=== PATIENT | female | born 1970 | race Caucasian/White ===

== ENCOUNTER 2016-10-03 19:06 | Observation (INO) | payer SELFPAY ==
[~2016-10-03] VITALS: Ht 152.4 cm; Wt 74.0 kg
[~2016-10-03 19:06] MED LIST: LEVO25TA4 PO; PROM25TA5 PO; [UNRECOGNIZED DRUG - CODE] PO
[2016-10-03 19:08] VITALS: BP 139/88; PULSE 81; RESP 16; TEMP 98.1; O2SAT 98
[2016-10-03] MEDS ORDERED: LEVO50TA4 PO (22:55)
[2016-10-03] MEDS ORDERED: LEVO25TA4 PO (22:55)
[2016-10-03 23:00] VITALS: BP_SYST 120; BP_SYST 128; BP_DIAS 78; BP_DIAS 81; PULSE 59; PULSE 65; RESP 16; O2SAT 98
[2016-10-03] MEDS ORDERED: SODIUM CHLORIDE 0.9% FLUSH 5 ML FLUSH IVF PRN (23:00)
[2016-10-03] MEDS ORDERED: ASPIRIN 81 MG CHEW TAB PO ONE (23:00)
[2016-10-03 23:23] LABS: AUTOMATED NEUTROPHIL # 4.4 TH/MM3 (1.8-7.7); BASOPHIL % 0.6 % (0.0-2.0); EOSINOPHIL # 0.1 TH/MM3 (0-0.4); EOSINOPHIL % 1.5 % (0.0-4.0); HEMATOCRIT 41.5 % (35.0-46.0); HEMO FLAGS DIFF FINAL; LYMPH % 37.2 % (9.0-44.0); MEAN CELL VOLUME 84.1 FL (80.0-100.0); MEAN CORPUSCULAR HEMOGLOBIN 29.7 PG (27.0-34.0); MEAN CORPUSCULAR HGB CONC 35.3 % (32.0-36.0); MONO % 4.9 % (0.0-8.0); NEUT % 55.8 % (16.0-70.0); PLATELET COUNT 204 TH/MM3 (150-450); RED BLOOD COUNT 4.94 MIL/MM3 (4.00-5.30); RED CELL DISTRIBUTION WIDTH 13.9 % (11.6-17.2)
[2016-10-03 23:36] LABS: ALT (GPT) 24 U/L (10-53); ANION GAP 12 MEQ/L (5-15); AST (GOT) 15 U/L (15-37); BLOOD UREA NITROGEN 9 MG/DL (7-18); CHLORIDE 106 MEQ/L (98-107); GLOMERULAR FILTRATION RATE 74 ML/MIN (>89); POTASSIUM 3.9 MEQ/L (3.5-5.1); SODIUM (NA) 142 MEQ/L (136-145)
[2016-10-03 23:40] LABS: INTERNATIONAL NORMALIZED RATIO 0.9 RATIO
[2016-10-03 23:41] LABS: ALKALINE PHOSPHATASE 77 U/L (45-117); TOTAL BILIRUBIN ADULT 0.2 MG/DL (0.2-1.0)
--- NOTE | 2016-10-03 23:41 | PD ---
HPI Chief Complaint: Chest Pain Time Seen by Provider: 22:52 Travel History International Travel<30 days: No Contact w/Intl Traveler<30days: No Traveled to known affect area: No History of Present Illness HPI The patient is a 46 year old female who presents to the [facility] emergency department with a history of chest pain on the left side of the chest that she reports began a week ago. She reports that the pain has been constant and a dull aching sensation that she reports has been mild, however today she began to have tingling sensations in the left arm with left wrist swelling and left-sided chest wall swelling. She reports that she's had shortness of breath intermittently over the last week. She denies having any cough or congestion. She denies having any worsening acid reflux symptoms. She last took an over-the -counter Prilosec for her acid reflux 3 days ago. She denies having any history of hypertension, however she does have hyperlipidemia that she is attempting to control with diet and exercise. She denies having any history of diabetes mellitus. She reports that she does smoke a half a pack of cigarettes per day. She denies ever having a stress test done previously. She denies having any diaphoresis or nausea associated with this per The patient denies any recent fevers, cough, congestion, neck pain, abdominal pain, vomiting, diarrhea, urinary symptoms, or neurologic symptoms. [facility] Past Medical History Narrative Medical The patient's past medical history is significant for anxiety, depression, hypothyroid disorder, acid reflux, hyperlipidemia, hepatitis B, allergic rhinitis with intermittent sinusitis, fibromyalgia Anxiety: Yes Depression: Yes Fibromyalgia: Yes Hepatitis: Yes (hepatitis b) Immunizations Current: Yes Thyroid Disease: Yes Influenza Vaccination: No ?: Not LMP: 09/19/2016 : 3 Para: 2 Past Surgical History Narrative Surgical The patient's past surgical history is significant for 2 prior C-sections, bilateral tubal ligation, carpal tunnel release on the right, cholecystectomy, liver biopsy. Section: Yes Social History Alcohol Use: Yes (occassionally) Tobacco Use: Yes (10 cigarettes per day) Substance Use: No Allergies-Medications (Allergen,Severity, Reaction): Coded Allergies: Sulfa (Verified Allergy, Intermediate, Hives, 10/03/16) Reported Meds & Prescriptions Reported Meds & Active Scripts Active Reported Levothyroxine (Levothyroxine Sodium) 25 Mcg Tab 25 Mcg PO TUES., THURS,SAT,SUN Review of Systems Except as stated in HPI: all other systems reviewed are Neg General / Constitutional: No: Fever Eyes: No: Visual changes HENT: Positive: Rhinitis, Rhinorrhea (clear in color), No: Headaches, Congestion Cardiovascular: Positive: Chest Pain or Discomfort, Dyspnea on exertion, Edema , No: Diaphoresis Respiratory: Positive: Shortness of Breath, No: Cough Gastrointestinal: No: Nausea, Vomiting, Diarrhea, Abdominal Pain, Changes in Bowel Habits, Indigestion, Loss of Appetite Genitourinary: No: Dysuria Musculoskeletal: No: Pain Skin: No Rash Neurologic: No: Weakness, Change in Mentation, Sensory Disturbance Psychiatric: No: Depression Endocrine: No: Polydipsia Hematologic/Lymphatic: No: Easy Bruising Physical Exam Narrative General: The patient is a well-developed well-nourished female in no acute distress. Head and Neck exam: Head is normocephalic atraumatic. Eyes: EOMI, pupils are equal round and reactive to light. Nose: Midline septum with pink mucous membranes Mouth: Dentition unremarkable. Moist mucus membranes. Posterior oropharynx is not erythematous. No tonsillar hypertrophy. Uvula midline. Airway patent. Neck: No palpable lymphadenopathy. No nuchal rigidity. No thyromegaly. Cardiovascular: Regular rate and rhythm without murmurs, gallops, or rubs. No pulse deficit to the extremities and simultaneous auscultation and palpation of her radial artery. She has chest wall tenderness on palpation anteriorly. There is no step-off or crepitus. No flail segment, no erythema or ecchymosis, no swelling noted on examination. Lungs: Clear to auscultation bilaterally. No wheezes, rhonchi, or rales. Abdomen: Soft, without tenderness to palpation in all 4 quadrants of the abdomen. No guarding, rebound, or rigidity. Normal bowel sounds are audible. Extremities: No clubbing, cyanosis, or edema. 2+ pulses in all 4 extremities. No calf tenderness on palpation. Negative Homans sign. No palpable cords. Back: No spinous process tenderness to palpation. No costovertebral angle tenderness to palpation. Neurologic Exam: Grossly nonfocal. Skin Exam: No rash noted. Intact skin that is warm and dry. Data Data Last Documented VS Vital Signs Date Time Temp Pulse Resp B/P Pulse Ox O2 Delivery O2 Flow Rate FiO2 10/03/16 23:02 100 Nasal Cannula 2 10/03/16 23:00 59 16 128/78 10/03/16 19:08 98.1 Orders Electrocardiogram (10/03/16 19:19) B-Type Natriuretic Peptide (10/03/16 22:55) Ckmb (Isoenzyme) Profile (10/03/16 22:55) Complete Blood Count With Diff (10/03/16 22:55) Comprehensive Metabolic Panel (10/03/16 22:55) D-Dimer (10/03/16 22:55) Magnesium (Mg) (10/03/16:55) Prothrombin Time / Inr (Pt) (10/03/16:55) Act Partial Throm Time (Ptt) (10/03/16:55) Troponin I (10/03/16 22:55) Lipase (10/03/16 22:55) Chest, Single Ap (10/03/16:55) Ecg Monitoring (10/03/16:55) Bilateral Bp Monitoring (10/03/16:55) Iv Access Insert/Monitor (10/03/16:55) Oximetry (10/03/16 22:55) Oxygen Administration (10/03/16:55) Aspirin Chew (Aspirin Chew) (10/03/16 23:00) Sodium Chloride 0.9% Flush (Ns Flush) (10/03/16 23:00) Ed Urine Pregnancytest Poc (10/03/16 22:55) Urinalysis - C+S If Indicated (10/03/16 22:55) Admit Order (Ed Use Only) (10/04/16 00:46) Labs Laboratory Tests Test 10/03/16 23:10 White Blood Count 8.0 TH/MM3 Red Blood Count 4.94 MIL/MM3 Hemoglobin 14.7 GM/DL Hematocrit 41.5 % Mean Corpuscular Volume 84.1 FL Mean Corpuscular Hemoglobin 29.7 PG Mean Corpuscular Hemoglobin 35.3 % Concent Red Cell Distribution Width 13.9 % Platelet Count 204 TH/MM3 Mean Platelet Volume 8.6 FL Neutrophils (%) (Auto) 55.8 % Lymphocytes (%) (Auto) 37.2 % Monocytes (%) (Auto) 4.9 % Eosinophils (%) (Auto) 1.5 % Basophils (%) (Auto) 0.6 % Neutrophils # (Auto) 4.4 TH/MM3 Lymphocytes # (Auto) 3.0 TH/MM3 Monocytes # (Auto) 0.4 TH/MM3 Eosinophils # (Auto) 0.1 TH/MM3 Basophils # (Auto) 0.0 TH/MM3 CBC Comment DIFF FINAL Differential Comment Prothrombin Time 10.0 SEC Prothromb Time International 0.9 RATIO Ratio Activated Partial 25.0 SEC Thromboplast Time D-Dimer Quantitative (PE/DVT) 0.19 MG/L FEU Sodium Level 142 MEQ/L Potassium Level 3.9 MEQ/L Chloride Level 106 MEQ/L Carbon Dioxide Level 24.0 MEQ/L Anion Gap 12 MEQ/L Blood Urea Nitrogen 9 MG/DL Creatinine 0.83 MG/DL Estimat Glomerular Filtration 74 ML/MIN Rate Random Glucose 126 MG/DL Calcium Level 8.3 MG/DL Magnesium Level 2.0 MG/DL Total Bilirubin 0.2 MG/DL Aspartate Amino Transf 15 U/L (AST/SGOT) Alanine Aminotransferase 24 U/L (ALT/SGPT) Alkaline Phosphatase 77 U/L Total Creatine Kinase 64 U/L Troponin I LESS THAN 0.02 NG/ML Total Protein 7.0 GM/DL Albumin 3.4 GM/DL Lipase 145 U/L B-Type Natriuretic Peptide 6 PG/ML MDM Medical Decision Making Medical Screen Exam Complete: Yes Emergency Medical Condition: Yes Medical Record Reviewed: Yes Interpretation(s) Last Impressions Chest X-Ray 10/03/16 3211 Signed Impressions: Service Date/Time: Monday, October 03, 2016 23:22 - CONCLUSION: No acute cardiopulmonary disease identified. Russell Orozco MD Differential Diagnosis Acute coronary syndrome, versus anxiety, versus costochondritis, versus pleurisy , versus pneumonia, versus pulmonary embolism Narrative Course During the course of the patients emergency department visit, the patients history, examination, and differential diagnosis were reviewed with the patient. The patient had IV access obtained and blood work sent for analysis. The patient was placed on a bus driver/monitor with oximetry and blood pressure monitoring. An EKG was done on arrival. The patient was provided aspirin 162 mg by mouth 1. The patients laboratory studies were reviewed and remarkable for a CBC that is within normal limits. CMP is remarkable for a glucose of 126, initial set of cardiac enzymes are negative, BNP 6, lipase 145, PT PTT unremarkable, d-dimer is 0.19 decreasing likelihood of pulmonary embolism in this patient with no other significant risk factors. Urinalysis is unremarkable. Radiology studies were reviewed and remarkable for a chest x-ray that shows no acute abnormality. The patient was agreeable with the plan to proceed with admission to the chest pain center for rule out serial cardiac enzyme protocol and stress testing. The patients results were discussed with the patient, including the plan of care. I explained that further testing and/ or monitoring is indicated based on the patients history, examination, and/ or laboratory findings. Therefore, I recommended admission for additional evaluation. The patient expressed understanding and was agreeable with this plan. The patient was admitted to the hospital in stable condition and sent to a bed under the care of the chest pain center. Diagnosis Primary Impression: Chest pain, rule out acute myocardial infarction Admitting Information Admitting Physician Requests: Suzi Jc MD Oct 03, 2016 23:40
[2016-10-03 23:45] LABS: CREATINE KINASE 64 U/L (26-192)
--- NOTE | 2016-10-04 00:29 | RADRPT ---
EXAM DATE/TIME: 10/03/2016 23:22 [facility] COMPARISON: CHEST SINGLE AP, June 07, 2016, 2:56. INDICATIONS : Chest pain for one week. MEDICAL HISTORY : None. SURGICAL HISTORY : None. ENCOUNTER: Initial ACUITY: 1 week PAIN SCORE: 4/10 LOCATION: Bilateral chest FINDINGS: Single AP view of the chest. The lungs are clear. Cardiomediastinal silhouette within normal limits. No evidence of pleural effusion or pneumothorax. CONCLUSION: No acute cardiopulmonary disease identified. Russell Orozco MD on October 04, 2016 at 0:27 Board Certified Radiologist. This report was verified electronically.
[2016-10-04 01:01] LABS: BLOOD, URINE NEG (NEG); GLUCOSE,URINE NEG (NEG); KETONE, URINE NEG (NEG); MUCUS URINE FEW /lpf (OCC); NITRITE,URINE NEG (NEG); PH, URINE 6.5 (5.0-8.5); SQUAMOUS EPITHELIAL CELL URINE 1 /hpf (0-5); URINE COLOR YELLOW (YELLW/STRAW)
[2016-10-04 01:02] LABS: COMMENT (UR) CULT NOT INDICATED; CULTURE IF INDICATED CULT NOT INDICATED
[2016-10-04 04:54] VITALS: BP 110/59; PULSE 72; RESP 20; TEMP 98; O2SAT 95
[2016-10-04 04:58] VITALS: BP 127/85; PULSE 88; RESP 16; O2SAT 98
[2016-10-04] MEDS ORDERED: SODIUM CHLORIDE 0.9% FLUSH 5 ML FLUSH IVF PRN (05:30)
[2016-10-04 06:00] LABS: CREATINE KINASE 58 U/L (26-192)
[2016-10-04 07:07] VITALS: PULSE 64
[2016-10-04 07:16] VITALS: BP 97/60; PULSE 68; RESP 17; TEMP 98.4; O2SAT 98
[2016-10-04 08:30] VITALS: PULSE 82
[2016-10-04 08:31] LABS: CREATINE KINASE 59 U/L (26-192)
--- NOTE | 2016-10-04 08:38 | HHI.DCPOC ---
Discharge Care Plan Diagnosis: (1) Chest pain, atypical (2) Tobacco abuse Goals to Promote Your Health * To prevent worsening of your condition and complications * To maintain your health at the optimal level Directions to Meet Your Goals Take your medications as prescribed Follow your dietary instruction Follow activity as directed Keep your appointments as scheduled Take your immunizations and boosters as scheduled If your symptoms worsen call your PCP, if no PCP go to Urgent Care Center or Emergency Room Smoking is Dangerous to Your Health. Avoid second hand smoke Call the 24-hour hour crisis hotline for domestic abuse at Lamine Berrios Oct 04, 2016 08:38
--- NOTE | 2016-10-04 08:48 | HHI.HP ---
HPI Primary Care Physician No Primary Care Physician Chief Complaint Chest pain History of Present Illness This is a 46-year-old female that presents to the ED complaining of a left upper chest discomfort as been present intermittently for the past week. She found nothing to bring on the discomfort. She states that when it occurs it last for half hour to one hour. No associated shortness of breath nausea or diaphoresis. She states that she can worsen discomfort if she presses on it. Denies recent trauma. Denies coughing. Denies fevers or chills. Denies recent travel. She became concerned yesterday when the discomfort began to radiate down her left arm and it appeared her that her left hand was a little swollen. Review of Systems General: Patient denies fevers, chills recent, and recent travel HEENT: Patient denies headache, sore throat, difficulty swallowing. Cardiovascular: Has the chest discomfort as mentioned above. Denies sensation of heart beating rapidly or irregularly. No syncope. Respiratory: Denies shortness of breath or inspirational chest discomfort. Denies coughing wheezing or hemoptysis. GI: Patient denies nausea, vomiting, diarrhea, abdominal pain, bloody stools. Musculoskeletal: The patient believes that her left hand was a little swollen. Denies calf pain or edema. Neurovascular: Patient denies numbness, tingling, weakness in extremities. Denies headache. Endocrine: Denies polyuria and polydipsia. Hematologic: Denies easy bruising. Skin: Denies rash or itching. Past Family Social History Allergies: Coded Allergies: Sulfa (Verified Allergy, Intermediate, Hives, 10/03/16) Past Medical History Hypothyroidism. Tobacco abuse. Denies hypertension hyperlipidemia diabetes and CAD. Past Surgical History Noncontributory. Reported Medications Reported Meds & Active Scripts Active Reported Levothyroxine (Levothyroxine Sodium) 50 Mcg Tab 50 Mcg PO MON, MON, MONDAY Levothyroxine (Levothyroxine Sodium) 25 Mcg Tab 25 Mcg PO ., ,SAT,SUN Active Ordered Medications Current Medications Medications (Trade) Dose Ordered Sig/Joseph Route Start Time Stop Time Status Last Admin (NS Flush) 2 ml UNSCH PRN IVF 10/03/16 23:00 10/03/16 23:29 (NS Flush) 2 ml UNSCH PRN IVF 10/04/16 05:30 (NS Flush) 2 ml BID IVF 10/04/16 09:00 Family History Denies family history of CAD. Social History Patient smokes about one half pack of cigarettes daily for 30 years. She has occasional alcohol. Denies illicit drugs. She lives with family. Physical Exam Vital Signs Vital Signs Date Time Temp Pulse Resp B/P Pulse Ox O2 Delivery O2 Flow Rate FiO2 10/04/16 07:16 98.4 68 17 97/60 98 10/04/16 07:07 64 10/04/16 04:58 98 21 10/04/16 04:58 88 16 127/85 98 Room Air 10/04/16 04:54 98.0 72 20 110/59 95 10/03/16 23:02 100 Nasal Cannula 2 10/03/16 23:00 59 16 128/78 98 Room Air 10/03/16 23:00 65 16 120/81 98 Room Air 10/03/16 19:08 98.1 81 16 139/88 98 Room Air Physical Exam GENERAL: This is a well-nourished, well-developed patient, in no apparent distress. Patient speaks in clear complete sentences. Patient is pleasant. HEENT: Head is atraumatic and normocephalic. Neck is supple without lymphadenopathy and trachea is midline. No JVD or carotid bruits. CARDIOVASCULAR: Regular rate and rhythm without murmurs, gallops, or rubs. RESPIRATORY: Left upper chest wall tender. It easily worsens the discomfort that she has been having even with light palpation. Clear to auscultation. Breath sounds equal bilaterally. No wheezes, rales, or rhonchi. No use of accessory muscles. GASTROINTESTINAL: Abdomen is nontender, nondistended. Abdomen soft. No obvious pulsatile mass or bruit. No CVA tenderness. Strong femoral pulses bilaterally. Normal bowel sounds in all quadrants. MUSCULOSKELETAL: Patient is moving upper and lower extremities freely. No calf tenderness or edema, no Homans sign. Strong pulses in upper and lower extremities. NEUROLOGICAL: Patient is alert and oriented. Cranial nerves 2-12 are grossly intact. No focal deficits and speech is clear. SKIN: No rash and turgor is normal. Laboratory Laboratory Tests Test 10/03/16 10/04/16 10/04/16 10/04/16 23:10 00:50 04:30 07:30 White Blood Count 8.0 Red Blood Count 4.94 Hemoglobin 14.7 Hematocrit 41.5 Mean Corpuscular Volume 84.1 Mean Corpuscular Hemoglobin 29.7 Mean Corpuscular Hemoglobin 35.3 Concent Red Cell Distribution Width 13.9 Platelet Count 204 Mean Platelet Volume 8.6 Neutrophils (%) (Auto) 55.8 Lymphocytes (%) (Auto) 37.2 Monocytes (%) (Auto) 4.9 Eosinophils (%) (Auto) 1.5 Basophils (%) (Auto) 0.6 Neutrophils # (Auto) 4.4 Lymphocytes # (Auto) 3.0 Monocytes # (Auto) 0.4 Eosinophils # (Auto) 0.1 Basophils # (Auto) 0.0 CBC Comment DIFF FINAL Differential Comment Prothrombin Time 10.0 Prothromb Time International 0.9 Ratio Activated Partial 25.0 Thromboplast Time D-Dimer Quantitative (PE/DVT) 0.19 Sodium Level 142 Potassium Level 3.9 Chloride Level 106 Carbon Dioxide Level 24.0 Anion Gap 12 Blood Urea Nitrogen 9 Creatinine 0.83 Estimat Glomerular Filtration 74 Rate Random Glucose 126 Calcium Level 8.3 Magnesium Level 2.0 Total Bilirubin 0.2 Aspartate Amino Transf 15 (AST/SGOT) Alanine Aminotransferase 24 (ALT/SGPT) Alkaline Phosphatase 77 Total Creatine Kinase 64 58 59 Troponin I LESS THAN 0.02 LESS THAN 0.02 LESS THAN 0.02 Total Protein 7.0 Albumin 3.4 Lipase 145 B-Type Natriuretic Peptide 6 Urine Color YELLOW Urine Turbidity CLEAR Urine pH 6.5 Urine Specific [place] 1.017 Urine Protein NEG Urine Glucose (UA) NEG Urine Ketones NEG Urine Occult Blood NEG Urine Nitrite NEG Urine Bilirubin NEG Urine Urobilinogen LESS THAN 2.0 Urine Leukocyte Esterase NEG Urine RBC 1 Urine WBC LESS THAN 1 Urine Squamous Epithelial 1 Cells Urine Mucus FEW Microscopic Urinalysis Comment CULT NOT INDICATED Result Diagram: 10/03/16 2310 10/03/16 231 Imaging Chest x-ray reveals nothing acute. Course EKGs have sinus rhythm without significant ST segment depressions or elevations. Assessment and Plan Assessment and Plan * Atypical chest pain: Patient had serial cardiac enzymes and EKGs for ruling out purposes. Her chest wall tenderness was easily reproducible with palpating the area. She was seen by Dr. Wodos cardiology in the chest pain center. She'll be given a prescription of Naprosyn and discharge at this time. She should follow-up with her physician. * Tobacco abuse: Patient has been counseled on importance of smoking cessation. Lamine Berrios Oct 04, 2016 08:47
[2016-10-04] MEDS ORDERED: SODIUM CHLORIDE 0.9% FLUSH 5 ML FLUSH IVF SCH (09:00)
--- NOTE | 2016-10-04 16:24 | EKG ---
Date Performed: 10/04/2016 Time Performed: 07:45:30 PTAGE: 46 years EKG: Sinus rhythm NORMAL ECG Since PREVIOUS TRACING , no significant change noted PREVIOUS TRACIN10/04/2016 04.33 DOCTOR: Tanesha Woods Interpretating Date/Time 10/04/2016 16:22:14
--- NOTE | 2016-10-04 16:25 | EKG ---
Date Performed: 10/04/2016 Time Performed: 04:33:13 PTAGE: 46 years EKG: Sinus rhythm LOW QRS VOLTAGE IN PRECORDIAL LEADS BORDERLINE ECG Since PREVIOUS TRACING , no significant change noted PREVIOUS TRACIN10/03/2016 19.37 DOCTOR: Tanesha Woods Interpretating Date/Time 10/04/2016 16:23:45
--- NOTE | 2016-10-04 16:26 | EKG ---
Date Performed: 10/03/2016 Time Performed: 19:37:08 PTAGE: 46 years EKG: Sinus rhythm LOW QRS VOLTAGE IN PRECORDIAL LEADS BORDERLINE ECG Since PREVIOUS TRACING , no significant change noted PREVIOUS TRACIN06/10/2016 00.31 DOCTOR: Tanesha Woods Interpretating Date/Time 10/04/2016 16:24:54
== END 2016-10-04 11:33 | disposition home or self-care (01) ==
LOC: NEPE 19:06 → NEDA 10-04 00:47 → NEPHCDU 10-04 04:57
DX: R07.9 Chest pain, unspecified (principal); R20.2 Paresthesia of skin; R06.02 Shortness of breath; E78.5 Hyperlipidemia, unspecified; F17.210 Nicotine dependence, cigarettes, uncomplicated; M79.7 Fibromyalgia; K21.9 Gastro-esophageal reflux disease without esophagitis; E03.9 Hypothyroidism, unspecified; B19.10 Unspecified viral hepatitis B without hepatic coma
CPT/HCPCS: 71010; 80053; 81001; 82550; 83690; 83735; 83880; 84484; 84703; 85025; 85379; 85610; 85730; 93005; 99285; G0378

== ENCOUNTER 2016-11-03 13:44 | Emergency (ER) | payer SELFPAY ==
[~2016-11-03] VITALS: Ht 152.4 cm; Wt 72.8 kg
[~2016-11-03 13:44] MED LIST changes: +LEVO50TA4 PO; -PROM25TA5 PO; -[UNRECOGNIZED DRUG - CODE] PO
[2016-11-03 13:46] VITALS: BP 129/83; PULSE 104; RESP 20; TEMP 99; O2SAT 98
--- NOTE | 2016-11-03 13:53 | PD ---
Physical Exam Time Seen by Provider: 13:50 Narrative 46 yo F c/o constant left sided chest pain x 3 months. Has been evaluated 3 times already. Reports SOB. Thinks its related to increase in thyroid medication. Hx of anxiety and has not taken medication prescribed. VSS Seen in triage, awaiting bed placement. Data Data Last Documented VS Vital Signs Date Time Temp Pulse Resp B/P Pulse Ox O2 Delivery O2 Flow Rate FiO2 11/03/16 13:46 99.0 104 20 129/83 98 Room Air MDM Supervised Visit with ROSELYN: Any Louis Nov 03, 2016 13:53
--- NOTE | 2016-11-03 16:28 | PD ---
HPI Chief Complaint: Chest Pain Time Seen by Provider: 16:11 Travel History International Travel<30 days: No Contact w/Intl Traveler<30days: No Traveled to known affect area: No History of Present Illness HPI This is a 46-year-old female who presents to the emergency department with 3 months of chest discomfort, throat pain, ear pain, fatigue, weakness, difficulty sleeping and anxiety. She says the chest pain has been constant, moderate severity, feeling like a swelling in her chest, associated with some chills. She also reports that she's had dry skin behind her ears, she's having some pain when she swallows, and she feels very tired. She's been seen for this multiple times. She attributed it to starting a new thyroid medication. She was prescribed venlafaxine by her primary care doctor but was afraid to take it. She was just admitted here for chest pain and had serial cardiac enzymes and was seen by cardiology who thought her pain was likely musculoskeletal. PFSH Past Medical History Anxiety: Yes Depression: Yes Heart Rhythm Problems: No Cardiac Catheterization: No Cardiovascular Problems: Yes High Cholesterol: Yes Congestive Heart Failure: No Diabetes: No Fibromyalgia: Yes Hepatitis: Yes (hepatitis b) Immunizations Current: Yes Thyroid Disease: Yes ?: Not : 3 Para: 2 Past Surgical History Section: Yes Coronary Artery Bypass Graft: No Social History Alcohol Use: Yes (occassionally) Tobacco Use: Yes (10 cigarettes per day) Substance Use: No Allergies-Medications (Allergen,Severity, Reaction): Coded Allergies: Sulfa (Verified Allergy, Intermediate, Hives, 11/03/16) Reported Meds & Prescriptions Reported Meds & Active Scripts Active Reported Levothyroxine (Levothyroxine Sodium) 25 Mcg Tab 25 Mcg PO TUES., THURS,SAT,SUN Review of Systems Except as stated in HPI: all other systems reviewed are Neg Physical Exam Narrative GENERAL:Well appearing, no acute distress SKIN: Focused skin assessment warm and dry. HEAD: Atraumatic. Normocephalic. EYES: Pupils equal and round. No injection or drainage. ENT: Moist mucous membranes. Some dry skin behind both ears. Mild posterior pharyngeal erythema. NECK: Trachea midline. CARDIOVASCULAR: Regular rate and rhythm. No murmur appreciated. RESPIRATORY: Clear to auscultation. Breath sounds equal bilaterally. GASTROINTESTINAL: Abdomen soft, non-tender, nondistended. MUSCULOSKELETAL: No obvious deformities. NEUROLOGICAL: Awake and alert. No obvious cranial nerve deficits. Moving all extremities. PSYCHIATRIC: Appropriate mood and affect; insight and judgment normal. Data Data Last Documented VS Vital Signs Date Time Temp Pulse Resp B/P Pulse Ox O2 Delivery O2 Flow Rate FiO2 11/03/16 13:46 99.0 104 20 129/83 98 Room Air MDM Medical Decision Making Medical Screen Exam Complete: Yes Emergency Medical Condition: Yes Interpretation(s) Temperature is 99, pulse is 104 Differential Diagnosis Viral syndrome, pneumonia, pericarditis, acute coronary syndrome Narrative Course This is a 46-year-old female who presents to the emergency department with multiple symptoms including chest discomfort, sore throat, rhinorrhea, and malaise. She appears to have a viral syndrome on exam with some posterior pharyngeal erythema, temperature of 99 and some tachycardia. She's been worked up for this chest discomfort in the past and it's been going on constantly for 3 months. I think she needs to see her primary care physician to have thyroid studies performed until evaluate her multiple complaints. I Don't think there is an emergent etiology of her symptoms. Patient will be discharged home. Diagnosis Primary Impression: Chest pain, atypical Patient Instructions: General Instructions Additional Instructions: If you develop severe chest pain, shortness of breath, sweating, lightheadedness , dizziness or difficulty breathing return to the emergency department immediately. Followup with your primary care physician in 2-3 days if your symptoms are not resolved. Med/Other Pt SpecificInfo: No Change to Meds Disposition: 01 DISCHARGE HOME Condition: Stable Lissette Dennis MD Nov 03, 2016 16:28
== END 2016-11-03 17:40 | disposition home or self-care (01) ==
LOC: NEPC 13:44
DX: R07.89 Other chest pain (principal); R07.0 Pain in throat; H92.09 Otalgia, unspecified ear; R53.83 Other fatigue; R53.1 Weakness; E07.9 Disorder of thyroid, unspecified; E78.00 Pure hypercholesterolemia, unspecified; F41.9 Anxiety disorder, unspecified; F17.200 Nicotine dependence, unspecified, uncomplicated; Z86.79 Personal history of other diseases of the circulatory system; Z87.39 Personal history of other diseases of the musculoskeletal system and connective tissue; Z86.19 Personal history of other infectious and parasitic diseases; Z86.59 Personal history of other mental and behavioral disorders
CPT/HCPCS: 99284

== ENCOUNTER 2017-05-09 20:33 | Emergency (ER) | payer SELFPAY ==
[~2017-05-09] VITALS: Ht 152.4 cm; Wt 80.0 kg
[2017-05-09 20:34] VITALS: BP 161/81; PULSE 83; RESP 16; TEMP 97.9; O2SAT 98
[2017-05-09] MEDS ORDERED: SIMV80TA PO (22:46)
[2017-05-09] MEDS ORDERED: VITA100064 PO (22:46)
--- NOTE | 2017-05-09 23:08 | PD ---
HPI Chief Complaint: Headache Time Seen by Provider: 22:54 Travel History International Travel<30 days: No Contact w/Intl Traveler<30days: No Traveled to known affect area: No History of Present Illness HPI WHILE AT WORK DEVELOPED LIGHTHEADEDNESS AND LIKE A WOOSHING SOUND TO HER EARS, ALONG WITH A MILD MARTIN, DENIES VISUAL CHANGES/N/V/D/CP/ABDPAIN/ ....NO ALLEVIATING /AGGRAVATING FACTORS, WHILE AT WORK NOTED TO BE HTN YET NO HISTORY....PATIENT DID STATE THAT SHE DID NOT EAT PRIOR TO GOING TO WORK NOR AT WORK YET. PFSH Past Medical History Anxiety: Yes Depression: Yes Heart Rhythm Problems: No Cardiac Catheterization: No Cardiovascular Problems: Yes High Cholesterol: Yes Congestive Heart Failure: No Diabetes: No Diminished Hearing: No Fibromyalgia: Yes Hepatitis: Yes (hepatitis b) Immunizations Current: Yes Thyroid Disease: Yes (hypo) Tetanus Vaccination: < 5 Years ?: Not LMP: 04/20/2017 : 3 Para: 2 Dilation and Curettage (D&C): Yes Tubal Ligation: Yes Past Surgical History Section: Yes Cholecystectomy: Yes Coronary Artery Bypass Graft: No Other Surgery: Yes (carpel tunnel to right hand, liver biopsy) Social History Alcohol Use: Yes (occassionally) Tobacco Use: Yes (10 cigarettes per day) Substance Use: No Allergies-Medications (Allergen,Severity, Reaction): Coded Allergies: Sulfa (Sulfonamide Antibiotics) (Unverified Allergy, Intermediate, Hives, 03/07/17) Reported Meds & Prescriptions Reported Meds & Active Scripts Active Reported Vitamin D3 (Cholecalciferol) 1,000 Unit Tab 1,000 Units PO DAILY Simvastatin 80 Mg Tab 80 Mg PO HS Levothyroxine (Levothyroxine Sodium) 50 Mcg Tab 50 Mcg PO MON, MON, MONDAY Levothyroxine (Levothyroxine Sodium) 25 Mcg Tab 25 Mcg PO ., THURS,SAT,SUN Review of Systems Except as stated in HPI: all other systems reviewed are Neg HENT: Positive: Lightheadedness Physical Exam Narrative GENERAL: SKIN: Warm and dry. HEAD: Atraumatic. Normocephalic. EYES: Pupils equal and round. No scleral icterus. No injection or drainage. ENT: No nasal bleeding or discharge. Mucous membranes pink and moist. NECK: Trachea midline. No JVD. CARDIOVASCULAR: Regular rate and rhythm. RESPIRATORY: No accessory muscle use. Clear to auscultation. Breath sounds equal bilaterally. GASTROINTESTINAL: Abdomen soft, non-tender, nondistended. Hepatic and splenic margins not palpable. MUSCULOSKELETAL: Extremities without clubbing, cyanosis, or edema. No obvious deformities. NEUROLOGICAL: Awake and alert. No obvious cranial nerve deficits. Motor grossly within normal limits. Five out of 5 muscle strength in the arms and legs. Normal speech. PSYCHIATRIC: Appropriate mood and affect; insight and judgment normal. Data Data Last Documented VS Vital Signs Date Time Temp Pulse Resp B/P (MAP) Pulse Ox O2 Delivery O2 Flow Rate FiO2 05/09/17 23:18 67 16 110/57 (74) 68 16 116/57 (76) 72 16 121/87 (98) 05/09/17 20:34 97.9 98 Room Air Orders Orders Ct Brain W/O Iv Contrast(Rout) (05/09/17 22:56) Urinalysis - C+S If Indicated (05/09/17 23:02) Orthostatic Vital Signs (05/09/17 23:02) Blood Glucose (05/09/17 23:02) Ed Urine Pregnancytest Poc (05/09/17 23:02) Labs Laboratory Tests Test 05/09/17 23:05 Urine Color COLORLESS Urine Turbidity CLEAR Urine pH 5.5 Urine Specific [place] 1.000 Urine Protein NEG mg/dL Urine Glucose (UA) NEG mg/dL Urine Ketones NEG mg/dL Urine Occult Blood NEG Urine Nitrite NEG Urine Bilirubin NEG Urine Urobilinogen LESS THAN 2.0 MG/DL Urine Leukocyte Esterase NEG Urine WBC 1 /hpf Urine Squamous Epithelial Cells <1 /hpf Microscopic Urinalysis Comment CULT NOT INDICATED MDM Medical Decision Making Medical Screen Exam Complete: Yes Emergency Medical Condition: Yes Medical Record Reviewed: Yes Differential Diagnosis DEHYDRATION V HYPOGLYCEMIA V PREG V UTI V ICH V SINUSITIS Narrative Course NORMAL GLUCOSE, NEG , NO E/O UTI ON UA NOR ANY DEHYDRATION, NORMAL ORTHOSTATICS. CT NEG FOR ICH Diagnosis Primary Impression: Lightheadedness Patient Instructions: General Instructions, Lightheadedness (ED) Additional Instructions: AVOID MISSING/SKIPPING MEALS. TODAY YOU WERE NOT , DID NOT HAVE A BLADDER INFECTION, NOR HAVE ANY EVIDENCE OF SINUSITIS. YOUR BLOOD PRESSURE GOING UP WAS JUST A REACTION TO HOW YOU WERE FEELING AND NOT THE CAUSE OF YOUR SYMPTOMS. Disposition: 01 DISCHARGE HOME Condition: Stable Kieran Lucas MD May 09, 2017 23:08
[2017-05-09 23:18] VITALS: BP_SYST 110; BP_SYST 116; BP_SYST 121; BP_DIAS 57; BP_DIAS 87; RESP 16
[2017-05-09 23:26] LABS: BLOOD, URINE NEG (NEG); COMMENT (UR) CULT NOT INDICATED; CULTURE IF INDICATED CULT NOT INDICATED; GLUCOSE,URINE NEG (NEG); KETONE, URINE NEG (NEG); NITRITE,URINE NEG (NEG); PH, URINE 5.5 (5.0-8.5); SQUAMOUS EPITHELIAL CELL URINE <1 /hpf (0-5); URINE COLOR COLORLESS (YELLW/STRAW)
--- NOTE | 2017-05-09 23:40 | RADRPT ---
EXAM DATE/TIME: 05/09/2017 23:21 [facility] COMPARISON: CT BRAIN W/O CONTRAST, June 10, 2016, 0:37. INDICATIONS : Headaches with dizziness. RADIATION DOSE: 31.98 CTDIvol (mGy) MEDICAL HISTORY : Cardiovascular disease. Hypertension. SURGICAL HISTORY : Tubal ligation. ENCOUNTER: Initial ACUITY: 1 day PAIN SCALE: 6/10 LOCATION: Bilateral cranial TECHNIQUE: Multiple contiguous axial images were obtained of the head. Using automated exposure control and adj ustment of the mA and/or kV according to patient size, radiation dose was kept as low as reasonably a chievable to obtain optimal diagnostic quality images. DICOM format image data is available electro nically for review and comparison. FINDINGS: CEREBRUM: The ventricles are normal for age. No evidence of midline shift, mass lesion, hemorrhage or acute in farction. No extra-axial fluid collections are seen. POSTERIOR FOSSA: The cerebellum and brainstem are intact. The 4th ventricle is midline. The cerebellopontine angle i s unremarkable. EXTRACRANIAL: The visualized portion of the orbits is intact. SKULL: The calvaria is intact. No evidence of skull fracture. CONCLUSION: 1. No evidence of acute intracranial pathology. No masses are identified. Shaun Chanel MD on May 09, 2017 at 23:38 Board Certified Radiologist. This report was verified electronically.
== END 2017-05-10 00:48 | disposition home or self-care (01) ==
LOC: NEPC 20:33
DX: R42 Dizziness and giddiness (principal); Z72.0 Tobacco use
CPT/HCPCS: 70450; 81001; 84703; 99284

== ENCOUNTER 2017-09-10 13:46 | Emergency (ER) | payer SELFPAY ==
[~2017-09-10] VITALS: Ht 152.4 cm; Wt 68.0 kg
[~2017-09-10 13:46] MED LIST changes: +SIMV80TA PO; +VITA100064 PO
[2017-09-10 13:50] VITALS: BP 153/83; PULSE 75; RESP 15; TEMP 98.2; O2SAT 99
[2017-09-10] MEDS ORDERED: SODIUM CHLORIDE 0.9% FLUSH 10 ML FLUSH IVF PRN (14:15)
--- NOTE | 2017-09-10 14:47 | PD ---
HPI Chief Complaint: Numbness/Tingling Time Seen by Provider: 14:05 Travel History International Travel<30 days: No Contact w/Intl Traveler<30days: No Traveled to known affect area: No History of Present Illness HPI 46-year-old female complains of numbness about the left lips and the left tongue. The symptoms started suddenly and resolved after about 30 minutes. She did not have a droop of the face or changes in speech or memory or any numbness tingling weakness involving either upper extremity. Patient reports frequent cough lately. She also describes some pain in the right back which she is worried might be related to her liver. The patient smokes 10 cigarettes daily. She is now smoking 3 seconds daily. PFSH Past Medical History Anxiety: Yes Depression: Yes Heart Rhythm Problems: No Cardiac Catheterization: No Cardiovascular Problems: Yes High Cholesterol: Yes Congestive Heart Failure: No Diabetes: No Diminished Hearing: No Fibromyalgia: Yes Hepatitis: Yes (hepatitis b) Immunizations Current: Yes Thyroid Disease: Yes (hypo) : 3 Para: 2 Dilation and Curettage (D&C): Yes Tubal Ligation: Yes Past Surgical History Section: Yes Cholecystectomy: Yes Coronary Artery Bypass Graft: No Other Surgery: Yes (carpel tunnel to right hand, liver biopsy) Social History Alcohol Use: Yes (occassionally) Tobacco Use: Yes (10 cigarettes per day) Substance Use: No Allergies-Medications (Allergen,Severity, Reaction): Coded Allergies: Sulfa (Sulfonamide Antibiotics) (Unverified Allergy, Intermediate, Hives, 03/07/17) Reported Meds & Prescriptions Reported Meds & Active Scripts Active Reported Vitamin D3 (Cholecalciferol) 1,000 Unit Tab 1,000 Units PO DAILY Simvastatin 80 Mg Tab 80 Mg PO HS Levothyroxine (Levothyroxine Sodium) 50 Mcg Tab 50 Mcg PO MON, MON, MONDAY Levothyroxine (Levothyroxine Sodium) 25 Mcg Tab 25 Mcg PO ., THURS,SAT,SUN Review of Systems Except as stated in HPI: all other systems reviewed are Neg General / Constitutional: No: Fever Physical Exam Narrative GENERAL: 46-year-old female pleasant no acute distress Vital Signs Date Time Temp Pulse Resp B/P (MAP) Pulse Ox O2 Delivery O2 Flow Rate FiO2 09/10/17 13:50 98.2 75 15 153/83 (106) 99 SKIN: Warm and dry. HEAD: Atraumatic. Normocephalic. EYES: Pupils equal and round. No scleral icterus. No injection or drainage. ENT: No nasal bleeding or discharge. Mucous membranes pink and moist. NECK: Trachea midline. No JVD. CARDIOVASCULAR: Regular rate and rhythm. RESPIRATORY: No accessory muscle use. Clear to auscultation. Breath sounds equal bilaterally. GASTROINTESTINAL: Abdomen soft, non-tender, nondistended. Hepatic and splenic margins not palpable. MUSCULOSKELETAL: Extremities without clubbing, cyanosis, or edema. No obvious deformities. NEUROLOGICAL: Awake and alert. No obvious cranial nerve deficits. Motor grossly within normal limits. Five out of 5 muscle strength in the arms and legs. Normal speech. PSYCHIATRIC: Appropriate mood and affect; insight and judgment normal. Data Data Last Documented VS Vital Signs Date Time Temp Pulse Resp B/P (MAP) Pulse Ox O2 Delivery O2 Flow Rate FiO2 09/10/17 13:50 98.2 75 15 153/83 (106) 99 Orders Orders Electrocardiogram (09/10/17 14:11) Complete Blood Count With Diff (09/10/17 14:11) Comprehensive Metabolic Panel (09/10/17 14:11) Creatine Kinase (Cpk) (09/10/17 14:11) Drug Screen, Random Urine (09/10/17 14:11) Troponin I (09/10/17 14:11) Urinalysis - C+S If Indicated (09/10/17 14:11) Ct Brain W/O Iv Contrast(Rout) (09/10/17 14:11) Ecg Monitoring (09/10/17 14:11) Iv Access Insert/Monitor (09/10/17 14:11) Oximetry (09/10/17 14:11) Sodium Chloride 0.9% Flush (Ns Flush) (09/10/17 14:15) Lorazepam Inj (Ativan Inj) (09/10/17 15:30) Labs Laboratory Tests Test 09/10/17 14:50 White Blood Count 9.1 TH/MM3 Red Blood Count 5.06 MIL/MM3 Hemoglobin 15.1 GM/DL Hematocrit 43.3 % Mean Corpuscular Volume 85.6 FL Mean Corpuscular Hemoglobin 29.8 PG Mean Corpuscular Hemoglobin Concent 34.8 % Red Cell Distribution Width 14.1 % Platelet Count 213 TH/MM3 Mean Platelet Volume 8.6 FL Neutrophils (%) (Auto) 57.5 % Lymphocytes (%) (Auto) 33.3 % Monocytes (%) (Auto) 6.3 % Eosinophils (%) (Auto) 2.6 % Basophils (%) (Auto) 0.3 % Neutrophils # (Auto) 5.2 TH/MM3 Lymphocytes # (Auto) 3.0 TH/MM3 Monocytes # (Auto) 0.6 TH/MM3 Eosinophils # (Auto) 0.2 TH/MM3 Basophils # (Auto) 0.0 TH/MM3 CBC Comment DIFF FINAL Differential Comment Urine Color STRAW Urine Turbidity CLEAR Urine pH 6.0 Urine Specific [place] 1.001 Urine Protein NEG mg/dL Urine Glucose (UA) NEG mg/dL Urine Ketones NEG mg/dL Urine Occult Blood NEG Urine Nitrite NEG Urine Bilirubin NEG Urine Urobilinogen LESS THAN 2.0 MG/DL Urine Leukocyte Esterase NEG Urine RBC LESS THAN 1 /hpf Urine Squamous Epithelial Cells 1 /hpf Microscopic Urinalysis Comment CATH-CULT NOT IND Blood Urea Nitrogen 10 MG/DL Creatinine 0.88 MG/DL Random Glucose 93 MG/DL Total Protein 7.6 GM/DL Albumin 3.4 GM/DL Calcium Level 8.6 MG/DL Alkaline Phosphatase 85 U/L Aspartate Amino Transf (AST/SGOT) 15 U/L Alanine Aminotransferase (ALT/SGPT) 15 U/L Total Bilirubin 0.2 MG/DL Sodium Level 141 MEQ/L Potassium Level 3.8 MEQ/L Chloride Level 108 MEQ/L Carbon Dioxide Level 23.8 MEQ/L Anion Gap 9 MEQ/L Estimat Glomerular Filtration Rate 69 ML/MIN Total Creatine Kinase 76 U/L Troponin I LESS THAN 0.02 NG/ML Urine Opiates Screen NEG Urine Barbiturates Screen NEG Urine Amphetamines Screen NEG Urine Benzodiazepines Screen NEG Urine Cocaine Screen NEG Urine Cannabinoids Screen NEG [facility] Medical Decision Making Medical Screen Exam Complete: Yes Emergency Medical Condition: Yes Medical Record Reviewed: Yes Differential Diagnosis Ischemic stroke, hemorrhagic stroke, weakness, Mcclendon's palsy Narrative Course CBC & BMP Diagram 09/10/17 14:50 Total Protein 7.6, Albumin 3.4, Calcium Level 8.6, Alkaline Phosphatase 85, Aspartate Amino Transf (AST/SGOT) 15, Alanine Aminotransferase (ALT/SGPT) 15, Total Bilirubin 0.2 Tn < 0.02 UA: no UTI Last Impressions Head CT 09/10/17 1411 Signed Impressions: Service Date/Time: Sunday, September 10, 2017 14:55 - CONCLUSION: Normal examination. Adrian Tatum MD The patient is resting comfortably and feels better, is alert and in no distress. The patients results and examination findings were discussed. The repeat examination is unremarkable and benign. The history, exam, diagnostic testing, and current condition do not suggest any significant pathology to warrant further testing, continued ED treatment, admission, or surgical evaluation at this point. The vital signs have been stable. The patient does not have uncontrollable pain, intractable vomiting, or other significant symptoms. The patient's condition is stable and appropriate for discharge. The patient will pursue further outpatient evaluation with a primary care physician or other designated or consulting physician as indicated in the discharge instructions. The patient expressed understanding and was agreeable with this plan. Diagnosis Primary Impression: Facial paresthesia Additional Impression: Anxiety Referrals: Primary Care Physician 2 days Med/Other Pt SpecificInfo: No Change to Meds Disposition: 01 DISCHARGE HOME Condition: Stable Sonu Romero MD Sep 10, 2017 14:47
--- NOTE | 2017-09-10 15:16 | RADRPT ---
EXAM DATE/TIME: 09/10/2017 14:55 [facility] COMPARISON: CT BRAIN W/O CONTRAST, May 09, 2017, 23:21. INDICATIONS : Left sided facial numbness today. RADIATION DOSE: 47.43 CTDIvol (mGy) MEDICAL HISTORY : Hypothyroidism. Hepatitis B. SURGICAL HISTORY : None. ENCOUNTER: Initial ACUITY: 1 day PAIN SCALE: 0/10 LOCATION: Bilateral head TECHNIQUE: Multiple contiguous axial images were obtained of the head. Using automated exposure control and adj ustment of the mA and/or kV according to patient size, radiation dose was kept as low as reasonably a chievable to obtain optimal diagnostic quality images. DICOM format image data is available electro nically for review and comparison. FINDINGS: CEREBRUM: The ventricles are normal for age. No evidence of midline shift, mass lesion, hemorrhage or acute in farction. No extra-axial fluid collections are seen. POSTERIOR FOSSA: The cerebellum and brainstem are intact. The 4th ventricle is midline. The cerebellopontine angle i s unremarkable. EXTRACRANIAL: The visualized portion of the orbits is intact. SKULL: The calvaria is intact. No evidence of skull fracture. CONCLUSION: Normal examination. Adrian Tatum MD on September 10, 2017 at 15:13 Board Certified Radiologist. This report was verified electronically.
[2017-09-10 15:22] LABS: AUTOMATED NEUTROPHIL # 5.2 TH/MM3 (1.8-7.7); BASOPHIL % 0.3 % (0.0-2.0); EOSINOPHIL # 0.2 TH/MM3 (0-0.4); EOSINOPHIL % 2.6 % (0.0-4.0); HEMATOCRIT 43.3 % (35.0-46.0); HEMOGLOBIN 15.1 GM/DL (11.6-15.3); LYMPH % 33.3 % (9.0-44.0); MEAN CELL VOLUME 85.6 FL (80.0-100.0); MEAN CORPUSCULAR HEMOGLOBIN 29.8 PG (27.0-34.0); MEAN CORPUSCULAR HGB CONC 34.8 % (32.0-36.0); MEAN PLATELET VOLUME 8.6 FL (7.0-11.0); MONO % 6.3 % (0.0-8.0); MONOCYTE # 0.6 TH/MM3 (0-0.9); NEUT % 57.5 % (16.0-70.0); PLATELET COUNT 213 TH/MM3 (150-450); RED BLOOD COUNT 5.06 MIL/MM3 (4.00-5.30); RED CELL DISTRIBUTION WIDTH 14.1 % (11.6-17.2); WHITE BLOOD COUNT 9.1 TH/MM3 (4.0-11.0)
[2017-09-10 15:25] LABS: BILIRUBIN, URINE NEG (NEG); BLOOD, URINE NEG (NEG); GLUCOSE,URINE NEG (NEG); KETONE, URINE NEG (NEG); NITRITE,URINE NEG (NEG); SQUAMOUS EPITHELIAL CELL URINE 1 /hpf (0-5); URINE LEUKOCYTE ESTERASE NEG (NEG)
[2017-09-10 15:27] LABS: URINE COLOR STRAW (YELLW/STRAW)
[2017-09-10] MEDS ORDERED: LORazepam 2 MG/ML VIAL IV PUSH ONE (15:30)
[2017-09-10 15:42] LABS: ALBUMIN 3.4 GM/DL (3.4-5.0); ALT (GPT) 15 U/L (10-53); AST (GOT) 15 U/L (15-37); BICARBONATE 23.8 MEQ/L (21.0-32.0); BLOOD UREA NITROGEN 10 MG/DL (7-18); CALCIUM 8.6 MG/DL (8.5-10.1); CHLORIDE 108 MEQ/L (98-107); CREATININE 0.88 MG/DL (0.50-1.00); GLOMERULAR FILTRATION RATE 69 ML/MIN (>89); GLUCOSE,RANDOM 93 MG/DL (74-106); SODIUM (NA) 141 MEQ/L (136-145)
[2017-09-10 15:46] LABS: ALKALINE PHOSPHATASE 85 U/L (45-117); TOTAL BILIRUBIN ADULT 0.2 MG/DL (0.2-1.0); TOTAL PROTEIN 7.6 GM/DL (6.4-8.2); TROPONIN I LESS THAN 0.02 NG/ML (0.02-0.05)
== END 2017-09-10 17:48 | disposition home or self-care (01) ==
LOC: NEPC 13:46
DX: R20.2 Paresthesia of skin (principal); F41.9 Anxiety disorder, unspecified; E03.9 Hypothyroidism, unspecified; E78.00 Pure hypercholesterolemia, unspecified; M79.7 Fibromyalgia; F17.210 Nicotine dependence, cigarettes, uncomplicated; R05 Cough
CPT/HCPCS: 70450; 80053; 80307; 81001; 82550; 84484; 85025; 96374; 99284; J2060